=== PATIENT | male | born 1990 | race Two or more races ===

== ENCOUNTER 2018-04-12 00:28 | Emergency (ER) | payer OTHER ==
[~2018-04-12] VITALS: Ht 190.5 cm; Wt 122.9 kg
[2018-04-12] MEDS ORDERED: HUMULIN 70100 UNIT/1 (01:36)
[2018-04-12] MEDS ORDERED: XANAX2 MG PO (05:07)
== END 2018-04-12 05:17 | disposition home or self-care (01) ==
LOC: ER 00:28
DX: R07.89 Other chest pain (principal); R00.2 Palpitations; F06.4 Anxiety disorder due to known physiological condition